=== PATIENT | female | born 1975 | race Caucasian/White ===

== ENCOUNTER 2021-05-18 00:36 | Emergency (ER) | payer BC, SELFPAY ==
--- NOTE | ~2021-05-18 | CT_ITS ---
EXAMINATION: CT abdomen pelvis w con DATE: 05/18/2021 02:26 INDICATION: Left flank pain. Bilateral abdominal pain. Nausea. TECHNIQUE: Computed tomography (CT) of the abdomen and pelvis was performed with 100 cc Omnipaque 350 intravenous contrast material intravenous contrast. Automated exposure control and iterative reconst ruction technique were employed. Exam dose: 1540.52 mGy-cm total exam DLP. COMPARISON: None. FINDINGS: The lung bases are clear. Heart size is normal. No pericardial or pleural effusion. The liver, gallbladder, bile ducts, spleen, pancreas, pancreatic duct are unremarkable. Probable small adenomas of each adrenal gland and small right adrenal myelolipoma. Approximately 4 mm left ureter pelvic junction calculus with mild left hydroureteronephrosis. Pinpoint nonobstructing lower pole right renal calculus. No other urinary tract calculus. No right hy droureteronephrosis. Small fat-containing lesion at the medial lower pole the right kidney measuring up to 6 mm may repres ent a small scar or infarct versus small angiomyolipoma. Approximately 5 mm lesion with fat attenuation is noted in the posterior lower right kidney, possibly a small angiomyolipoma. Normal caliber of the abdominal aorta. No intraperitoneal or retroperitoneal or pelvic mass lesion or adenopathy or ascites. There is IUD within the uterus. Uterus and adnexal areas and urinary bladder are otherwise unremarkab le. Normal appendix. Mild colonic diverticulosis. No CT evidence of diverticulitis. No bowel obstruction, bowel wall thickening, pneumatosis or intraperitoneal free air. Small fat-containing umbilical hernia. IMPRESSION: 4 mm left ureteropelvic junction calculus with mild left hydronephrosis Reviewed, dictated and finalized at [facility]. Reviewed, dictated and finalized at location [facility]. IMPRESSION: 4 mm left ureteropelvic junction calculus with mild left hydroneph rosis
[2021-05-18 00:47] VITALS: BP 134/85; PULSE 100; RESP 18; TEMP 37.2; O2SAT 97
[2021-05-18 01:29] LABS: Basophils Absolute Auto 0.1 K/mm3 (0.0-0.1); Basophils Percent Auto 0.7 % (0.2-1.2); Eosinophils Absolute Auto 0.3 K/mm3 (0-0.3); Eosinophils Percent Auto 2.3 % (0-4.4); Hemoglobin 11.6 g/dL (12.0-15.0); Immature Granulocyte Absolute 0.03 K/mm3 (0.00-0.031); Immature Granulocyte Percent A 0.3 % (0-0.5); Lymphocytes Absolute Auto 3.42 K/mm3 (0.9-3.2); Lymphocytes Percent Auto 31.9 % (18.3-44.2); Mean Corpuscular HGB Conc 29.7 g/dl (32-36); Mean Corpuscular Hemoglobin 23.7 pg (26-34); Mean Corpuscular Volume 79.8 fl (80-100); Mean Platelet Volume 9.8 fl (7.4-10.4); Monocytes Absolute Auto 0.4 K/mm3 (0.1-0.6); Monocytes Percent Auto 3.7 % (2.6-8.5); Neutrophils Absolute Auto 6.6 K/mm3 (1.3-6.7); Neutrophils Percent Auto 61.1 % (45.5-73.1); Platelet Count Result 266 k/mm3 (150-375); Red Blood Count 4.89 M/mm3 (4.2-5.4); Red Cell Distribution Width 16.5 % (11.5-14.5); White Blood Count 10.7 K/mm3 (4.5-10.0)
--- NOTE | 2021-05-18 01:31 | ED.ABDPAIN ---
HPI - Abdominal Pain General Chief Complaint: Abdominal Pain <MD Vaishnavi Nguyen Last Filed: 05/18/21 01:51> Stated Complaint: POSSIBLE KIDNEY STONES <MD Vaishnavi Nguyen Last Filed: 05/18/21 01:51> Time Seen by Provider: 05/18/21 00:52 <MD Vaishnavi Nguyen Last Filed: 05/18/21 01:51> Source: patient and family <MD Vaishnavi Nguyen Last Filed: 05/18/21 01:51> Mode of arrival: ambulatory <MD Vaishnavi Nguyen Last Filed: 05/18/21 01:51> Limitations: no limitations <MD Vaishnavi Nguyen Last Filed: 05/18/21 01:51> History of Present Illness HPI narrative: 45-year-old with no major medical problems here with complaints of sudden onset of left flank pain radiating into the anterior abdomen. She denied any nausea, vomiting. No history of fever or chills. Denies any blood in the urine. No previous history of any kidney infections or kidney stones. <Conrado Gill MD - Last Filed: 05/18/21 01:51> MD elicited complaint: abdominal pain and flank pain <MD Vaishnavi Nguyen Last Filed: 05/18/21 01:51> Pertinent past history: none <MD Vaishnavi Nguyen Last Filed: 05/18/21 01:51> Onset (ago): hour(s) (1) <MD Vaishnavi Nguyen Last Filed: 05/18/21 01:51> Pain Consistency: constant <MD Vaishnavi Nguyen Last Filed: 05/18/21 01:51> Location: L flank <MD Vaishnavi Nguyen Last Filed: 05/18/21 01:51> Severity: moderate <MD Vaishnavi Nguyen Last Filed: 05/18/21 01:51> Quality: aching <MD Vaishnavi Nguyen Last Filed: 05/18/21 01:51> Radiation: LUQ <MD Vaishnavi Nguyen Last Filed: 05/18/21 01:51> Exacerbating factors: nothing <MD Vaishnavi Nguyen Last Filed: 05/18/21 01:51> Relieving factors: nothing <Conrado Gill MD - Last Filed: 05/18/21 01:51> Related Data Allergies/Adverse Reactions: Allergies Allergy/AdvReac Type Severity Reaction Status Date / Time No Known Allergies Allergy Uncoded 08/08/19 15:54 <Conrado Gill MD - Last Filed: 05/18/21 01:51> Review of Systems Review of Systems: All systems reviewed & are unremarkable except as noted in HPI and below <Conrado Gill MD - Last Filed: 05/18/21 01:51> Constitutional: Constitutional: Reports no additional constitutional complaints <Conrado Gill MD - Last Filed: 05/18/21 01:51> Eyes: Eyes: Reports no additional eye complaints <Conrado Gill MD - Last Filed: 05/18/21 01:51> ENT: Reports system reviewed and no additional complaints, except as documented <Conrado Gill MD - Last Filed: 05/18/21 01:51> Cardiovascular: Cardiovascular: Reports no additional cardiovascular complaints <Conrado Gill MD - Last Filed: 05/18/21 01:51> Respiratory: Respiratory: Reports no additional respiratory complaints <Conrado Gill MD - Last Filed: 05/18/21 01:51> Gastrointestinal: Gastrointestinal: Reports as per HPI <Conrado Gill MD - Last Filed: 05/18/21 01:51> Musculoskeletal: Musculoskeletal: Reports no additional musculoskeletal complaints <Conrado Gill MD - Last Filed: 05/18/21 01:51> Integumentary/Breasts: Skin/Breast: Reports system reviewed and no additional complaints, except as docu <Conrado Gill MD - Last Filed: 05/18/21 01:51> Neurologic: Reports system reviewed and no additional complaints, except as documented <Conrado Gill MD - Last Filed: 05/18/21 01:51> Exam Narrative: GENERAL: Well-appearing,obese , and in no acute distress. HEAD: Normocephalic, atraumatic. EYES: PERRLA and EOMI. NECK: Supple. CHEST: Clear to auscultation. No respiratory distress. HEART: Regular rate and rhythm. No murmur heard. Normal peripheral pulses. ABDOMEN: Soft, nontender, nondistended, normal active bowel sounds. EXTREMITIES: Normal range of motion. No edema. SKIN: Warm, dry, no rash. NEURO: No focal deficits. Alert and oriented x3. PSYCH: Normal mood and affect. <Conrado Gill MD - Last Filed: 05/18/21 01:51> Course Vital S
[2021-05-18 01:32] LABS: Anion Gap 9 mmol/L (8-16); Blood Urea Nitrogen 10 mg/dL (7-17); Calcium 10.6 mg/dL (8.4-10.2); Carbon Dioxide 24 mmol/L (22-30); Chloride 100 mmol/L (98-107); Estimated CRCL calculation 109 ml/min; Estimated Glomerular Filt Rate > 60; Glucose 120 mg/dL (65-110); Potassium 4.2 mmol/L (3.4-5.0); Sodium 133 mmol/L (137-145)
[2021-05-18 01:56] LABS: Atypical Lymphocytes Present; Platelet Estimate Adequate (Adequate)
[2021-05-18 02:17] LABS: Add Urine Microscopic? YES; Appearance Urine Cloudy (Clear); Bacteria Urine Trace /hpf; Bilirubin Urine 2+ (Negative); Blood Urine 3+ (Negative); Color Urine Amber (Yellow); Glucose Urine UA Negative (Negative); Ketones Urine Negative (Negative); Leukocyte Esterase Ur 2+ LEU/UL (Negative); Mucus Urine Few /lpf; Nitrate Urine Negative (Negative); Protein Urine 2+ mg/dL (Negative); RBC Urine >75 /hpf (0-2); Specific Grav Ur 1.026 (1.001-1.035); Squamous Epithelial Cell Urine Many /hpf (Few); WBC Urine 31-50 /hpf
[2021-05-18] MEDS: ONDANSETRON INJ 4 MG/2 ML VIAL IV PUSH (02:44)
[2021-05-18] MEDS: HYDROmorphone HCL INJ (*CRX) 1 MG/ML SYR IV PUSH (02:45)
[2021-05-18] MEDS: SODIUM CHLORIDE 0.9% IV 1,000 ML 999 ML IV CONT (02:46)
[2021-05-18 02:50] VITALS: BP 140/85; PULSE 96; RESP 16; O2SAT 96
[2021-05-18 03:25] VITALS: BP 129/89; PULSE 83; RESP 16; O2SAT 98
== END 2021-05-18 03:30 | disposition home or self-care (01) ==
PROVIDERS: Emergency Provider Emergency Medicine; PCP Nurse Practitioner Family
DX: N13.2 Hydronephrosis with renal and ureteral calculous obstruction (principal)
CPT/HCPCS: 36415; 74177; 80048; 81001; 81025; 85025; 87086; 96361; 96374; 96375; 99284; J1170; J2405; J7030; Q9967

== ENCOUNTER 2021-05-20 23:26 | Emergency (ER) | payer BC, SELFPAY ==
--- NOTE | ~2021-05-20 | XR_ITS ---
XR abdomen/kub 1V 05/21/2021 01:42 INDICATION: Left renal stones TECHNIQUE: KUB COMPARISON: None FINDINGS: Bowel gas pattern is normal. There is no evidence of free air, mass, organomegaly, ascites or obstruction. No abnormal calculi are seen. There is an IUD in the pelvis. There are pelvic phleb oliths. The bones appear intact. IMPRESSION: 1: No acute abdominal abnormality identified. Reviewed, dictated and finalized at location [facility].
[2021-05-20 23:45] VITALS: BP 147/92; PULSE 101; RESP 18; TEMP 36.9; O2SAT 97
--- NOTE | 2021-05-21 00:38 | ED.GENADULT ---
HPI - General Adult History of Present Illness HPI narrative: Severe left flank pain. Seen here 2 days ago and found to have a left ureteral stone. urology follow up next week. Was doing okay at home, but ran out of pain medication. No fever, chills, dysuria. Related Data Allergies Allergy/AdvReac Type Severity Reaction Status Date / Time No Known Allergies Allergy Uncoded 08/08/19 15:54 Review of Systems Review of Systems: All systems reviewed & are unremarkable except as noted in HPI and below Cardiovascular: Cardiovascular: Denies chest pain Respiratory: Respiratory: Denies dyspnea Gastrointestinal: Gastrointestinal: Denies diarrhea and Reports nausea PMFSH Past Medical History Medical History (Updated 05/29/21 @ 08:12 by Flakito Polanco MD) Kidney stone Social History Social History (Updated 05/29/21 @ 08:12 by Flakito Polanco MD) Smoking status: Never smoker Gender identity (if verbalized by the patient): Female Exam Const: General: healthy appearing, no acute distress, alert and uncomfortable Orientation/consciousness: patient oriented x3 HENMT: Head: normal to inspection Neck: Neck: normal visual inspection Resp: Effort & Inspection: normal respiratory effort Auscultation: clear to auscultation bilaterally, no rales, no rhonchi and no wheezes Cardio: Jugular venous distension: no JVD Rate: regular rate Rhythm: regular rhythm Heart sounds: no murmurs GI: Inspection: non-distended GI Palp: Yes Soft to palpation and No Tenderness to palpation present (GI) Skin: General skin exam: normal color Neuro: General: patient oriented x3 and moves all extremities Speech: normal speech Extrem: General: no edema Psych: Appearance: well kempt Affect: normal affect Course Vital Signs Vital signs: Vital Signs Temperature 36.9 C 05/20/21 23:45 Pulse Rate 101 H 05/20/21 23:45 Respiratory Rate 18 05/20/21 23:45 Blood Pressure 147/92 H 05/20/21 23:45 Pulse Oximetry 97 05/20/21 23:45 Temperature 36.9 C 05/20/21 23:45 Pulse Rate 76 05/21/21 05:16 Respiratory Rate 17 05/21/21 05:16 Blood Pressure 120/76 05/21/21 05:16 Pulse Oximetry 100 05/21/21 05:16 Medical Decision Making MDM Narrative Medical decision making narrative: Mild leukocytosis. UA not concerning for infection. Pain controlled in ED. I will provide her another norco prescription. Hopefully this will hold her until urology follow-up Medical Records Medical records reviewed: Yes I reviewed the external patient's medical records. Vital Signs Vital Signs: Vital Signs Temperature 36.9 C 05/20/21 23:45 Pulse Rate 101 H 05/20/21 23:45 Respiratory Rate 18 05/20/21 23:45 Blood Pressure 147/92 H 05/20/21 23:45 Pulse Oximetry 97 05/20/21 23:45 Temperature 36.9 C 05/20/21 23:45 Pulse Rate 76 05/21/21 05:16 Respiratory Rate 17 05/21/21 05:16 Blood Pressure 120/76 05/21/21 05:16 Pulse Oximetry 100 05/21/21 05:16 Lab Data Lab results reviewed: Yes I reviewed the patient's lab results. Result diagrams: 05/21/21 01:00 05/21/21 01:00 Labs: Lab Results 05/21/21 05/21/21 05/21/21 Range/Units 01:00 01:00 02:26 WBC 12.4 H (4.5-10.0) K/mm3 RBC 4.96 (4.2-5.4) M/mm3 Hgb 11.6 L (12.0-15.0) g/dL Hct 39.7 (37.0-47.0) % MCV 80.0 (80-100) fl MCH 23.4 L (26-34) pg MCHC 29.2 L (32-36) g/dl RDW 16.5 H (11.5-14.5) % Plt Count 266 (150-375) k/mm3 MPV 9.4 (7.4-10.4) fl Immature Gran % (Auto) 0.6 H (0-0.5) % Neut % (Auto) 74.3 H (45.5-73.1) % Lymph % (Auto) 18.1 L (18.3-44.2) % [place] % (Auto) 4.9 (2.6-8.5) % Eos % (Auto) 1.6 (0-4.4) % Baso % (Auto) 0.5 (0.2-1.2) % Lymph # (Auto) 2.24 (0.9-3.2) K/mm3 [place] # (Auto) 0.6 (0.1-0.6) K/mm3 Eos # (Auto) 0.2 (0-0.3) K/mm3 Baso # (Auto) 0.1 (0.0-0.1) K/mm3 Abs Immat Gran (auto) 0.07 H (0.00-0.031)
[2021-05-21] MEDS: SODIUM CHLORIDE 0.9% IV 1,000 ML 999 ML IV CONT (01:05)
[2021-05-21] MEDS: MORPHINE SULFATE (*CRX) 4 MG/ML INJ IV PUSH (01:05)
[2021-05-21] MEDS: ONDANSETRON INJ 4 MG/2 ML VIAL IV PUSH (01:05)
[2021-05-21 01:08] LABS: Basophils Absolute Auto 0.1 K/mm3 (0.0-0.1); Basophils Percent Auto 0.5 % (0.2-1.2); Eosinophils Absolute Auto 0.2 K/mm3 (0-0.3); Eosinophils Percent Auto 1.6 % (0-4.4); Hematocrit 39.7 % (37.0-47.0); Hemoglobin 11.6 g/dL (12.0-15.0); Immature Granulocyte Absolute 0.07 K/mm3 (0.00-0.031); Immature Granulocyte Percent A 0.6 % (0-0.5); Lymphocytes Absolute Auto 2.24 K/mm3 (0.9-3.2); Lymphocytes Percent Auto 18.1 % (18.3-44.2); Mean Corpuscular HGB Conc 29.2 g/dl (32-36); Mean Corpuscular Hemoglobin 23.4 pg (26-34); Mean Platelet Volume 9.4 fl (7.4-10.4); Monocytes Absolute Auto 0.6 K/mm3 (0.1-0.6); Monocytes Percent Auto 4.9 % (2.6-8.5); Neutrophils Absolute Auto 9.2 K/mm3 (1.3-6.7); Neutrophils Percent Auto 74.3 % (45.5-73.1); Platelet Count Result 266 k/mm3 (150-375); Red Blood Count 4.96 M/mm3 (4.2-5.4); Red Cell Distribution Width 16.5 % (11.5-14.5); White Blood Count 12.4 K/mm3 (4.5-10.0)
[2021-05-21 01:16] LABS: Anion Gap 9 mmol/L (8-16); Blood Urea Nitrogen 11 mg/dL (7-17); Calcium 10.7 mg/dL (8.4-10.2); Carbon Dioxide 24 mmol/L (22-30); Chloride 103 mmol/L (98-107); Estimated Glomerular Filt Rate > 60; Glucose 134 mg/dL (65-110); Potassium 4.3 mmol/L (3.4-5.0); Sodium 136 mmol/L (137-145)
[2021-05-21 01:44] VITALS: BP 134/71; PULSE 98; RESP 18; O2SAT 99
[2021-05-21 02:45] LABS: Add Urine Microscopic? YES; Appearance Urine Clear (Clear); Bilirubin Urine Negative (Negative); Blood Urine 1+ (Negative); Color Urine Yellow (Yellow); Glucose Urine UA Negative (Negative); Ketones Urine Negative (Negative); Leukocyte Esterase Ur 1+ LEU/UL (Negative); Mucus Urine Rare /lpf; Nitrate Urine Negative (Negative); Protein Urine Negative (Negative); Specific Grav Ur 1.015 (1.001-1.035); Squamous Epithelial Cell Urine Moderate /hpf (Few); Transitional Epi Cells Urine Rare /hpf (None Seen); Urobilinogen Urine Negative mg/dL (<2.0)
[2021-05-21 02:59] VITALS: BP 130/74; PULSE 81; RESP 18; O2SAT 100
[2021-05-21 04:00] VITALS: BP 124/89; PULSE 83; RESP 17; O2SAT 100
[2021-05-21 05:16] VITALS: BP 120/76; PULSE 76; RESP 17; O2SAT 100
== END 2021-05-21 05:16 | disposition home or self-care (01) ==
PROVIDERS: Emergency Provider Emergency Medicine; PCP Nurse Practitioner Family
DX: N20.1 Calculus of ureter (principal); Z87.442 Personal history of urinary calculi
CPT/HCPCS: 36415; 74018; 80048; 81001; 85025; 87086; 87088; 96361; 96374; 96375; 99284; J2270; J2405; J7030

== ENCOUNTER 2021-05-29 13:40 | Outpatient (CLI) | payer BC, SELFPAY ==
--- NOTE | ~2021-05-29 | CT_ITS ---
EXAMINATION: CT abdomen pelvis wo con DATE: 05/29/2021 14:05 INDICATION: Left kidney stone TECHNIQUE: Computed tomography (CT) of the abdomen and pelvis was performed without intravenous contr ast. Automated exposure control and iterative reconstruction technique were employed. Exam dose: 115 0.90 mGy-cm total exam DLP. COMPARISON: 05/18/2021 CT abdomen pelvis FINDINGS: The lung bases are clear. Normal heart size. No pericardial or pleural effusion. The liver, gallbladder, bile ducts, pancreas and pancreatic duct are unremarkable. Spleen is within u pper normal range of up to 12 cm approximate maximal height. Approximately 2 cm mixed soft tissue and fatty lesion of the right adrenal gland is probably a myelol ipoma. Probable 1.8 cm left adrenal adenoma. Approximately 3 x 5 mm proximal left ureteral calculus at the upper L4 level with moderate left hydro nephrosis. Normal appendix. There is diverticulosis of the left and right colon. There is focal mild pericolic fat stranding in t he proximal sigmoid area consistent with mild focal proximal sigmoid diverticulitis. No bowel obstruction, bowel wall thickening, pneumatosis or intraperitoneal free air is noted otherwi se. Very small fat-containing inguinal hernia. Normal caliber of the abdominal aorta. No intraperitoneal or retroperitoneal or pelvic mass lesion or adenopathy or ascites. There is an IUD in expected position in the uterus. Adnexal areas and urinary bladder are unremarkabl e. IMPRESSION: 3 x 5 mm proximal left ureteral calculus with proximal moderate left hydroureteronephros is Focal minimal proximal sigmoid diverticulitis Diverticulosis of left and right colon Normal appendix Bilateral adrenal small masses Reviewed, dictated and finalized at [facility]. Reviewed, dictated and finalized at location [facility]. IMPRESSION: 3 x 5 mm proximal left ureteral calculus with proximal moderate le ft hydroureteronephrosis Focal minimal proximal sigmoid diverticulitis Diverticulosis of left and right colon Normal appendix Bilateral adrenal small masses
== END 2021-05-29 13:41 | disposition home or self-care (01) ==
LOC: ANHIMG 13:46
PROVIDERS: PCP Nurse Practitioner Family; Visit Provider Nurse Practitioner Family
DX: N13.2 Hydronephrosis with renal and ureteral calculous obstruction (principal); K57.92 Diverticulitis of intestine, part unspecified, without perforation or abscess without bleeding; E27.9 Disorder of adrenal gland, unspecified
CPT/HCPCS: 74176

== ENCOUNTER 2021-06-01 02:11 | Day surgery (SDC) | payer BC, SELFPAY ==
[2021-05-31 08:23] VITALS: BMI 43.4
[2021-06-01] VITALS (11 sets, daily range): BP systolic 113–140; BP diastolic 66–90; PULSE 68–87; RESP 12–20; TEMP 36.8–37.1; O2SAT 94–100
--- NOTE | ~2021-06-01 | XR_ITS ---
EXAMINATION: XR fluoroscopy no charge DATE: 06/01/2021 11:37 INDICATION: Left ureteral stone. TECHNIQUE: 3 intraoperative fluoroscopic views of the abdomen and pelvis were obtained. I was not pre sent. Fluoroscopy exposure time was 42 seconds. COMPARISON: CT abdomen and pelvis 05/29/2021 FINDINGS: There is an intrauterine device in expected position. There is no visible urolithiasis. IMPRESSION: 1. No visible urolithiasis. Reviewed, dictated and finalized at location [facility]. IMPRESSION: 1. No visible urolithiasis.
--- NOTE | 2021-06-01 07:22 | WPDHPUPDATE1 ---
History and Physical Update Update Date/Time: 06/01/21 07:22 History and Physical has been reviewed, including an updated exam of the patient. There are NO changes in the patient's condition. Risks, benefits, and alternatives have been discussed and questions answered. Patient agrees to proceed with procedure.
[2021-06-01] MEDS: LACTATED RINGERS 1,000 ML 30 ML IV CONT (09:55)
--- NOTE | 2021-06-01 10:01 | P.PNAN_ITS ---
Anes - Initial Pre Proc Eval Procedure: Operation Date: 06/01/21 11:00 Proposed Procedures p Left Ureteroscopy, Left Stone Extraction With Possible Left Retrograde Pyelogram, Possible Left Stent Placement - Seth Mccracken MD s Possible Holmium Laser Procedure - Seth Mccracken MD Date/Time: 06/01/21 10:01 Surgeon: Seth Mccracken MD Pre Op Diagnosis: Left Ureteral Stone Patient Data Age: 45 Gender: F Height: 1.68 m Weight: 122 kg Allergies Allergy/AdvReac Type Severity Reaction Status Date / Time No Known Allergies Allergy Verified 05/31/21 08:21 Home Medications Medication Instructions Recorded Confirmed Type ondansetron 4 mg PO Q8H PRN #10 tablet 05/18/21 05/31/21 Rx tamsulosin [Flomax] 0.4 mg PO DAILY #10 cap 05/18/21 05/31/21 Rx hydrocodone-acetaminophen 1 tablet PO Q6H PRN #20 tablet 05/21/21 05/31/21 Rx Patient hx anesthesia problems: none Family hx anesthesia problems: none [facility] Past Medical History Medical History Kidney stone Morbid obesity Smoker Surgical History Surgical History (Updated 06/01/21 @ 10:02 by Jose Alejandro Duran MD) H/O oral surgery History of D&C Social History Social History Smoking packs per day: 0.5 Smoking cigarettes per day: 10.0 Years smoked: 23 Smoking pack-years: 11.50 Smoking status: Current every day smoker Tobacco type: cigarettes Alcohol intake: current Drinks per week: 2 Substance use: never Living arrangements: with family Gender identity (if verbalized by the patient): Female Anes - Eval Final PreProcedure Day of Procedure 06/01/21 10:01 Patient weight: morbidly obese Heart: regular rate and rhythm Lungs: clear to auscultation Airway: Mallampati scale class II Neurological: alert and oriented Last oral intake: >/= 8 hours ASA classification: III Emergent: no Anesthetic plan: proceed Anesthesia type and monitoring: general LMA and standard monitoring Informed Consent: The patient's anesthetic plan and its attendant risks and benefits were discussed with the patient/family/POA. Questions were solicited and answers provided to the satisfaction of the patient/family/POA.
[2021-06-01] MEDS: ceFAZolin 3 GM/D5W 100 ML 100 ML IVPB (10:57)
--- NOTE | 2021-06-01 11:39 | W.PM.PROC2 ---
Procedure Note - Detailed Date of Procedure 06/01/21 Pre-op Diagnosis Left Ureteral Stone Post-op Diagnosis same Procedure Performed Cystoscopy, left ureteroscopy with stone extraction Surgeon Seth Mccracken MD Anesthesia general Description of Procedure The patient was brought to the operative suite where she is prepped and draped in a routine sterile fashion while in the dorsal lithotomy position after the uneventful induction of a general LMA anesthetic. A 19F rigid cystoscope was placed in the bladder. The patient had no evidence of urethral stricture or bladder neck contracture. The bladder mucosa was endoscopically normal without hyperemia or neoplasm. There was a single, orthotopic ureteral orifice bilaterally. A 0.035 glidewire was advanced into the left renal pelvis under fluoroscopy. The distal ureter was dilated with an 8F/10F ureteral dilator. Ureteroscopy was undertaken with a short, tapered, semi-rigid ureteroscope and the stone was extracted with ease using a 1.9F Escape disposable stone basket. Due to the ease of this manipulation I opted not to place a ureteral stent. The patient's bladder was emptied and was taken to the recovery room having tolerated this procedure well. Estimated Blood Loss 0 Drains No Packing No Pathology none sent Complications No immediate complications Condition stable Disposition PACU
[2021-06-01] MEDS: ONDANSETRON INJ 4 MG/2 ML VIAL IV PUSH (11:53)
[2021-06-01] MEDS: fentaNYL CITRATE INJ (*CRX) 100 MCG/2 ML VIAL 25 MCG IV PUSH ×6 (12:06→12:39)
[2021-06-01] MEDS: oxyCODONE HCL (*CRX) 5 MG TAB IR PO (13:38)
== END 2021-06-01 14:30 | disposition home or self-care (01) ==
PROVIDERS: PCP Nurse Practitioner Family; Visit Provider Urology
PROC: (CPT 52352; principal; 2021-06-01 11:00)
PROC: (CPT 52352; 2021-06-01 11:00)
DX: N20.1 Calculus of ureter (principal); F17.210 Nicotine dependence, cigarettes, uncomplicated; E66.01 Morbid (severe) obesity due to excess calories; Z68.42 Body mass index [BMI] 45.0-49.9, adult
CPT/HCPCS: 52352; 82365; 88300; A9270; C1769; J0690; J1100; J1885; J2250; J2405; J2704; J3010; J7120

== ENCOUNTER → 2021-11-28 10:12 | Outpatient (CLI) | payer BC, SELFPAY ==
--- NOTE | ~2021-11-28 | MR_ITS ---
EXAMINATION: MR knee RT wo con DATE: 11/28/2021 10:55 INDICATION: Right knee pain TECHNIQUE: Magnetic resonance imaging (MRI) of the right knee was performed without intravenous contr ast. Sequences included coronal PD-weighted FSE, coronal PD-weighted FS FSE, sagittal T2-weighted FS E, sagittal PD-weighted FS FSE and axial PD weighted fat saturated FSE. COMPARISON: None. FINDINGS: Medial compartment: Medial meniscus is normal. Deep chondral fissuring without degenerative subchondral changes at the ju nction of the anterior to central weightbearing medial femoral condyle. Partial-thickness cartilage l oss with smooth chondral surface along the medial side of the medial tibial plateau. Lateral compartment: Discoid lateral meniscus without evident tear. Articular cartilage is normal. Patellofemoral compartment: Deep chondral fissuring with mild subarticular increased marrow signal at the patellar apical ridge. Trochlear cartilage is normal. Ligaments and tendons: Anterior and posterior cruciate ligaments are normal. The medial collateral ligament and fibular vi ateral ligament complex are normal. The extensor mechanism is normal. The visualized medial and later al hamstring tendons as well as the iliotibial band are normal. Fluid: Physiologic amount of fluid in the joint space. No loose osteochondral bodies identified. Osseous/other: Red marrow reexpansion in the metaphyseal regions of the distal femur and proximal tibia and fibula. No fracture or pathologic marrow replacing process. IMPRESSION: 1. Mild osteoarthritis with small focus of high-grade chondromalacia at the patellar apical ridge and small focus of moderate grade chondromalacia at the weightbearing medial femoral condyle. 2. Discoid lateral meniscus. Reviewed, dictated and finalized at location A. TER MACHINE IMPRESSION: 1. Mild osteoarthritis with small focus of high-grade chondromalacia at the pat ellar apical ridge and small focus of moderate grade chondromalacia at the weig htbearing medial femoral condyle. 2. Discoid lateral meniscus.
== END ==
PROVIDERS: Visit Provider Nurse Practitioner Family
DX: M19.011 Primary osteoarthritis, right shoulder (principal)
CPT/HCPCS: 73721

== ENCOUNTER 2023-06-30 21:03 | Emergency (ER) | payer BC, SELFPAY ==
[2023-06-30 21:03] VITALS: BP 150/86; PULSE 102; RESP 15; TEMP 36.3; O2SAT 99
--- NOTE | 2023-06-30 21:14 | ED.SKABFB ---
HPI - Skin/Abscess/Foreign Bdy General Chief complaint: Skin/Abscess/Foreign Body Stated complaint: staph infection Time Seen by Provider: 06/30/23 21:13 History of Present Illness HPI narrative: Patient presents to the emergency department with left upper medial thigh focal pain and swelling. She has a history of abscesses but is only had to have them drained 1 time. Denies fevers chills. Denies all other review of systems. Patient is alone Related Data Home Medications Medication Instructions Recorded Confirmed acetaminophen 500 mg tablet 500 mg PO Q6H PRN 08/02/21 11/10/21 (Tylenol Extra Strength) ibuprofen 800 mg tablet 800 mg PO TID 08/02/21 11/10/21 naproxen sodium 220 mg tablet 220 mg PO BID PRN 08/02/21 11/10/21 (Aleve) Allergies Allergy/AdvReac Type Severity Reaction Status Date / Time No Known Allergies Allergy Verified 06/30/23 21:14 Review of Systems Review of Systems: Review of systems negative except for what is documented in the HPI PMFSH Past Medical History Medical History Chondromalacia, patella Hx of nephrolithotomy with removal of calculi Kidney stone Knee joint effusion Left knee DJD Morbid obesity Right knee DJD Right knee pain Smoker Surgical History Surgical History H/O oral surgery History of D&C Social History Social History Smoking packs per day: 0.5 Smoking cigarettes per day: 10.0 Years smoked: 23 Smoking pack-years: 11.50 Smoking status: Current every day smoker Tobacco type: cigarettes Alcohol intake: current Drinks per week: 2 Substance use: never Living arrangements: with family Gender identity (if verbalized by the patient): Female Exam Narrative: GENERAL: Well-appearing, well-nourished, and in no acute distress. HEAD: Normocephalic, atraumatic. ENT: Nares clear, no rhinorrhea or epistaxis. Mucous membranes moist. NECK: Normal ROM CHEST: No respiratory distress. EXTREMITIES: Normal range of motion. Firm tender swollen area medial left thigh, no signs of cellulitis no erythema or warmth SKIN: Warm, dry, no rash. NEURO: No focal deficits. Alert and oriented x3. PSYCH: Normal mood and affect. Course Course Emergency Course: Plan for I&D of abscess. Focal fluctuance noted Vital Signs Vital signs: Vital Signs Temperature 36.3 C L 06/30/23 21:03 Pulse Rate 102 H 06/30/23 21:03 Respiratory Rate 15 06/30/23 21:03 Blood Pressure 150/86 H 06/30/23 21:03 Pulse Oximetry 99 06/30/23 21:03 Oxygen Delivery Room Air 06/30/23 21:03 Temperature 36.3 C L 06/30/23 21:03 Pulse Rate 102 H 06/30/23 21:03 Respiratory Rate 15 06/30/23 21:03 Blood Pressure 150/86 H 06/30/23 21:03 Pulse Oximetry 99 06/30/23 21:03 Oxygen Delivery Room Air 06/30/23 21:03 Procedures Abscess I/D lower extremity: Date of Incision: 06/30/23 Time of Incision: 22:11 Side (if applicable): left Sedation/analgesia: none Local Anesthetic: lidocaine 1% Amount of anesthesia used (mL): 3 Amount of fluid expressed (mL): 5 Irrigation: Yes Packing used?: none Abcess I&D Additional Comments: probed to break up loculations thin bloody sanguineous fluid MDM - Skin/Abscess/Foreign Bdy MDM Narrative Medical decision making narrative: Moderate amount of bloody serosanguineous fluid from abscess without signs of infection. No cellulitis around site. However patient is concerned because she gets these recurrently. Will DC with antibiotic and advised follow-up if needed. Shared decision making regarding taking the antibiotic and decreasing recurrence of infection Discharge Plan Discharge Clinical Impression: Abscess Patient Disposition: Home, Self-Care Condition: Stable Instructions: Abscess (ED) Additional Instructions: Keep warm compress o
[2023-06-30] MEDS: HYDROcodone/acetaminophen (*CRX) 5-325 MG TABLET 1 TAB PO (21:24)
[2023-06-30] MEDS: LIDOCAINE HCL 1% LOCAL INJ 10 ML VIAL 5 ML INFILTRATE (21:24)
== END 2023-06-30 22:29 | disposition home or self-care (01) ==
LOC: ANHED 21:27
PROVIDERS: Emergency Provider Emergency Medicine; PCP Nurse Practitioner Family
DX: L02.416 Cutaneous abscess of left lower limb (principal); F17.210 Nicotine dependence, cigarettes, uncomplicated; E66.01 Morbid (severe) obesity due to excess calories; Z68.41 Body mass index [BMI] 40.0-44.9, adult
CPT/HCPCS: 10060; 99283; A9270

== ENCOUNTER 2024-01-24 04:18 | Emergency (ER) | payer BC, SELFPAY ==
[2024-01-24 04:19] VITALS: BP 140/91; PULSE 90; RESP 16; TEMP 36.2; O2SAT 100
--- NOTE | 2024-01-24 05:14 | ED.GENADULT ---
HPI - General Adult General Chief complaint: Dental/Oral Stated complaint: upper left dental pain Time Seen by Provider: 01/24/24 04:48 History of Present Illness HPI narrative: This is a 48-year-old female presenting with toothache. For last 2 days she has had pain in her left upper molar. No swelling or area of fluctuance. No fever chills nausea or vomiting. No difficulty swallowing secretions or shortness of breath. Related Data Home Medications Medication Instructions Recorded Confirmed acetaminophen 500 mg tablet 500 mg PO Q6H PRN 08/02/21 11/10/21 (Tylenol Extra Strength) ibuprofen 800 mg tablet 800 mg PO TID 08/02/21 11/10/21 naproxen sodium 220 mg tablet 220 mg PO BID PRN 08/02/21 11/10/21 (Aleve) Allergies Allergy/AdvReac Type Severity Reaction Status Date / Time No Known Allergies Allergy Verified 01/24/24 04:27 [facility] Past Medical History Medical History Chondromalacia, patella Hx of nephrolithotomy with removal of calculi Kidney stone Knee joint effusion Left knee DJD Morbid obesity Right knee DJD Right knee pain Smoker Surgical History Surgical History H/O oral surgery History of D&C Social History Social History Smoking packs per day: 0.5 Smoking cigarettes per day: 10.0 Years smoked: 23 Smoking pack-years: 11.50 Smoking status: Current every day smoker Tobacco type: cigarettes Alcohol intake: current Drinks per week: 2 Substance use: never Living arrangements: with family Gender identity (if verbalized by the patient): Female Exam Narrative: APPEARANCE: No apparent distress. Head: Poor dentition, left upper molar is tender to palpation with cap place, no area of fluctuance signs of abscess EYES: EOMI, NOSE: Atraumatic NECK: Trachea midline RESPIRATORY: No increased rate of breathing CARDIOVASCULAR: RRR, ABDOMINAL: Non-distended MUSCULOSKELETAl: No obvious deformities NEURO: Alert. Moving 4/4 extremities SKIN:: Warm, dry. Normal color PSYCHIATRIC: Normal affect Course Vital Signs Vital signs: Vital Signs Temperature 97.1 F L 01/24/24 04:19 Pulse Rate 90 01/24/24 04:19 Respiratory Rate 16 01/24/24 04:19 Blood Pressure 140/91 H 01/24/24 04:19 Pulse Oximetry 100 01/24/24 04:19 Oxygen Delivery Room Air 01/24/24 04:19 Temperature 97.1 F L 01/24/24 04:19 Pulse Rate 90 01/24/24 04:19 Respiratory Rate 16 01/24/24 04:19 Blood Pressure 140/91 H 01/24/24 04:19 Pulse Oximetry 100 01/24/24 04:19 Oxygen Delivery Room Air 01/24/24 04:19 Procedures Nerve Block Nerve Block 1: Nerve block date: 01/24/24 Local Anesthetic: bupivacaine 0.25% Amount of anesthesia used (mL): 5 Side: left Intraoral Nerve Block: superior alveolar Procedure Successful: Yes Patient Tolerated Procedure: well Complications: none Medical Decision Making MDM Narrative Medical decision making narrative: -Course: 48-year-old presenting with toothache. Superior alveolar nerve block performed. Patient treated with Toradol and Tylenol. Discharged with dental follow-up. -Procedures: superior alveolar block -Interventions: Toradol, Tylenol -Shared decision making / Disposition:discharged. -RX Motrin Tylenol amoxicillin Vital Signs Vital Signs: Vital Signs Temperature 97.1 F L 01/24/24 04:19 Pulse Rate 90 01/24/24 04:19 Respiratory Rate 16 01/24/24 04:19 Blood Pressure 140/91 H 01/24/24 04:19 Pulse Oximetry 100 01/24/24 04:19 Oxygen Delivery Room Air 01/24/24 04:19 Temperature 97.1 F L 01/24/24 04:19 Pulse Rate 90 01/24/24 04:19 Respiratory Rate 16 01/24/24 04:19 Blood Pressure 140/91 H 01/24/24 04:19 Pulse Oximetry 100 01/24/24 04:19 Oxygen Delivery Room Air 01/24/24 04:19 Discharge Plan Discharge Clinical Im
[2024-01-24] MEDS: KETOROLAC 30 MG/ML VIAL (*BKC) IM (05:20)
[2024-01-24] MEDS: ACETAMINOPHEN 500 MG TABLET 1000 MG PO (05:20)
[2024-01-24 05:37] VITALS: BP 136/90; PULSE 99; RESP 16; O2SAT 99
== END 2024-01-24 05:38 | disposition home or self-care (01) ==
PROVIDERS: Emergency Provider Emergency Medicine; PCP Internal Medicine
DX: K08.89 Other specified disorders of teeth and supporting structures (principal); E66.01 Morbid (severe) obesity due to excess calories; Z68.42 Body mass index [BMI] 45.0-49.9, adult; F17.210 Nicotine dependence, cigarettes, uncomplicated
CPT/HCPCS: 64999; 96372; 99283; A9270; J1885